=== PATIENT | male | born 1995 | race Caucasian/White ===

== ENCOUNTER 2016-07-17 17:43 | Emergency (ER) | payer SELFPAY ==
[2016-07-17] MEDS ORDERED: Benzonatate 100 MG CAP ONE (18:07)
[2016-07-17] MEDS ORDERED: Azithromycin 250 MG TAB ONE (18:07)
== END 2016-07-17 18:10 | disposition home or self-care (01) ==
LOC: MADERS 17:43
DX: J40 Bronchitis, not specified as acute or chronic (principal); F17.210 Nicotine dependence, cigarettes, uncomplicated
CPT/HCPCS: 99283

== ENCOUNTER 2016-07-20 16:30 | Emergency (ER) | payer SELFPAY ==
[2016-07-20] MEDS ORDERED: HYDROcodone/Acetaminophen 5/325 mg Tablet ONE (17:27)
[2016-07-20] MEDS ORDERED: Ketorolac Tromethamine 60 MG/2 ML VIAL ONE (17:28)
[2016-07-20] MEDS ORDERED: Dexamethasone 4 MG TAB ONE (17:28)
--- NOTE | 2016-07-20 17:41 | RAD ---
CHEST TWO VIEW 07/20/16 HISTORY: Cough. COMPARISON: None. FINDINGS: The lungs are clear. No pneumothorax or effusion. The cardiac silhouette and mediastinal contours ar e within normal limits. IMPRESSION: No acute cardiopulmonary process. POS: [facility]
== END 2016-07-20 17:45 | disposition home or self-care (01) ==
LOC: MADERS 16:30
DX: J20.9 Acute bronchitis, unspecified (principal); F17.210 Nicotine dependence, cigarettes, uncomplicated
CPT/HCPCS: 71020; 96372; J1885; J8540

== ENCOUNTER 2016-12-23 14:45 | Emergency (ER) | payer SELFPAY ==
--- NOTE | 2016-12-23 16:20 | RAD ---
RADIOGRAPH RIGHT HAND 3 VIEWS: DATE: 12/23/16. HISTORY: A 21-year-old male status post acute traumatic right hand injury. COMPARISON: 07/04/14. FINDINGS: Again demonstrated is the tiny, displaced, nonunited fracture with defect and displaced tiny fragmen t, at the 3rd distal tuft. There are no other osseous abnormalities. No acute fracture, periosteal elevation, or radiopaque foreign body. The joint spaces are maintained without erosions or osteoph ytes. No interval change overall. IMPRESSION: 1. No acute fracture. 2. Old, traumatic, mildly displaced tiny fracture at the 3rd distal tuft. 3. Otherwise, normal. POS: [facility]
== END 2016-12-23 16:55 | disposition home or self-care (01) ==
LOC: MADERS 14:45
DX: S60.221A Contusion of right hand, initial encounter (principal); F17.210 Nicotine dependence, cigarettes, uncomplicated; W23.1XXA Caught, crushed, jammed, or pinched between stationary objects, initial encounter

== ENCOUNTER 2017-02-11 18:59 | Emergency (ER) | payer SELFPAY ==
[2017-02-11] MEDS ORDERED: AMOXicillin 250 MG CAP ONE (20:01)
[2017-02-11] MEDS ORDERED: Benzonatate 100 MG CAP ONE (20:01)
[2017-02-11] MEDS ORDERED: HYDROcodone/Acetaminophen 10/325 mg Tablet ONE (20:01)
[2017-02-11] MEDS ORDERED: Naproxen 500 MG TAB ONE (20:01)
== END 2017-02-11 20:10 | disposition home or self-care (01) ==
LOC: MADERS 18:59
DX: J20.9 Acute bronchitis, unspecified (principal); F17.210 Nicotine dependence, cigarettes, uncomplicated
CPT/HCPCS: 99283

== ENCOUNTER 2017-10-14 17:53 | Emergency (ER) | payer SELFPAY ==
--- NOTE | 2017-10-14 19:11 | RAD ---
LEFT HAND THREE VIEW 10/14/17 HISTORY: Trauma. COMPARISON: None. FINDINGS: There is an intra-articular fracture of the thumb proximal phalanx extending from the head into the h ead and into the mid diaphysis and proximal metaphysis. This is comminuted without significant displa cement. IMPRESSION: Comminuted intra-articular fracture of the proximal phalanx of the thumb with the fracture extending into the interphalangeal joint. POS: [facility]
[2017-10-14] MEDS ORDERED: Cephalexin 500 MG CAP ONE (19:14)
[2017-10-14] MEDS ORDERED: Triple Antibiotic Oint 1 GM Packet ONE (19:14)
[2017-10-14] MEDS ORDERED: Adacel (T-DAP) 0.5 ML VIAL ONE (19:14)
[2017-10-14] MEDS ORDERED: Naproxen 500 MG TAB ONE (19:22)
[2017-10-14] MEDS ORDERED: HYDROcodone/Acetaminophen 10/325 mg Tablet ONE (19:22)
== END 2017-10-14 19:40 | disposition home or self-care (01) ==
LOC: MADERS 17:53
DX: S62.512A Displaced fracture of proximal phalanx of left thumb, initial encounter for closed fracture (principal); S61.412A Laceration without foreign body of left hand, initial encounter; F17.210 Nicotine dependence, cigarettes, uncomplicated; Z23 Encounter for immunization; W23.0XXA Caught, crushed, jammed, or pinched between moving objects, initial encounter
CPT/HCPCS: 29125; 90471; 90715

== ENCOUNTER 2019-01-02 10:16 | Emergency (ER) | payer SELFPAY ==
--- NOTE | 2019-01-02 10:55 | RAD ---
RIGHT HAND THREE VIEW SERIES: INDICATIONS: Post traumatic pain. COMPARISON: 12/23/2016 FINDINGS: There is chronic fragmentation at the tuft of the 3rd digit distal phalanx. No interval acute osseou s abnormality is seen. IMPRESSION: Stable chronic osseous fragmentation of the tuft of the 3rd digit distal phalanx. POS: [facility]
[2019-01-02] MEDS ORDERED: Bacitracin 1 PK ONE (10:56)
== END 2019-01-02 11:10 | disposition home or self-care (01) ==
LOC: MADERS 10:16
DX: S60.011A Contusion of right thumb without damage to nail, initial encounter (principal); F17.210 Nicotine dependence, cigarettes, uncomplicated; W22.8XXA Striking against or struck by other objects, initial encounter

== ENCOUNTER 2019-05-08 12:42 | Emergency (ER) | payer SELFPAY | END 2019-05-08 13:10 | disposition home or self-care (01) | LOC: MADERS 12:42 | DX: J06.9 Acute upper respiratory infection, unspecified (principal); F17.210 Nicotine dependence, cigarettes, uncomplicated; Z71.6 Tobacco abuse counseling | CPT/HCPCS: 99281 ==

== ENCOUNTER 2020-06-12 14:48 | Emergency (ER) | payer SELFPAY ==
[2020-06-12 16:09] LABS: #Basophils 0.1 thou/uL (0.0-0.2); #Lymphocytes 1.4 thou/uL (1.20-3.40); #Monocytes 0.4 thou/uL (0.11-0.59); #Neutrophils 3.6 thou/uL (1.40-6.50); %Eosinophils 0.3 % (0.0-10.0); %Lymphocytes 24.7 % (21.0-51.0); %Monocytes 7.9 % (0.0-10.0); %Neutrophils 66.1 % (42.0-75.0); Hemoglobin 15.7 g/dL (14.0-18.0); Mean Corpuscular HGB CONC 33.7 g/dL (32.0-36.0); Mean Corpuscular Hemoglobin 30.3 pg (27.0-31.0); Mean Platelet Volume 7.9 fL (7.4-10.4); Platelet Count 158 thou/uL (130-400); Red Blood Cell (RBC) Count 5.17 mill/uL (4.70-6.10); White Blood Cell (WBC) Count 5.5 thou/uL (4.8-10.8)
--- NOTE | 2020-06-12 16:18 | CT ---
CT head noncontrast HISTORY: Headache. FINDINGS: There is no evidence of acute intracranial hemorrhage or infarct. The ventricles appear nor mal in size, shape and position. There is no mass effect or shift of midline structures. Visualized paranasal sinuses remain well aerated. IMPRESSION : No abnormalities are demonstrated.
[2020-06-12 16:23] LABS: ALT (SGPT) 23 U/L (8-55); AST (SGOT) 25 U/L (5-34); Albumin 4.4 g/dL (3.5-5.0); Alcohol Less than 10 mg/dL (Less than 10); Alkaline Phosphatase 53 U/L (40-110); Anion Gap 14 mmol/L (10-20); BUN (Urea Nitrogen) 11 mg/dL (8.9-20.6); Bilirubin, Total 0.6 mg/dL (0.2-1.2); Calc. Creatinine Clearance 0 mL/min (70-130); Carbon Dioxide 28 mmol/L (22-29); Chloride 105 mmol/L (98-107); Globulin 2.3 g/dL (2.4-3.5); Glucose 87 mg/dL (70-105); Potassium 3.7 mmol/L (3.5-5.1); Protein, Total 6.7 g/dL (6.0-8.3); Sodium 143 mmol/L (136-145)
--- NOTE | 2020-06-12 16:43 | RAD ---
CHEST 1 VIEW: Date: 06/12/2020 HISTORY: Syncope. FINDINGS: Heart size and mediastinum are within normal limits. Lungs are clear of any infiltrates. No significa nt bony findings. IMPRESSION: No active intrathoracic disease. POS: [facility]
[2020-06-12 17:29] LABS: Amphetamine Not Detected (NotDetected); Barbiturates Screen Not Detected (NotDetected); Benzodiazepine Screen Not Detected (NotDetected); Cocaine Metabolite Screen Not Detected (NotDetected); Medtox Control Line Valid? VALID (VALID); Methadone Not Detected (NotDetected); Methamphetamine Not Detected (NotDetected); Opiate Screen Detected (NotDetected); Oxycodone Screen Not Detected (NotDetected); Phencyclidine (PCP) Not Detected (NotDetected); THC/Cannabinoid Screen Not Detected (NotDetected); Tricyclic Screen Not Detected (NotDetected)
--- NOTE | 2020-06-12 17:30 | CT ---
CT CERVICAL SPINE WITHOUT CONTRAST: 06/12/20 INDICATIONS: Fall with injury to neck. FINDINGS: Cervical vertebrae maintain normal height and alignment. Disc spaces are maintained. No evidence of f racture. No evidence of disc protrusion. IMPRESSION: Unremarkable cervical spine. POS: [facility]
== END 2020-06-12 18:30 | disposition home or self-care (01) ==
LOC: MADERS 14:48
DX: R55 Syncope and collapse (principal); S00.93XA Contusion of unspecified part of head, initial encounter; F17.210 Nicotine dependence, cigarettes, uncomplicated; W22.8XXA Striking against or struck by other objects, initial encounter
CPT/HCPCS: 36415; 70450; 71045; 72125; 80053; 80306; 80307; 84484; 85025; 93005

== ENCOUNTER 2020-06-14 23:31 | Emergency (ER) | payer SELFPAY ==
[2020-06-15] MEDS ORDERED: Morphine 2 MG/ML VIAL ONE (00:33)
[2020-06-15 00:58] LABS: #Basophils 0.1 thou/uL (0.0-0.2); #Eosinphils 0.1 thou/uL (0.0-0.7); #Lymphocytes 2.4 thou/uL (1.20-3.40); #Monocytes 0.5 thou/uL (0.11-0.59); #Neutrophils 2.9 thou/uL (1.40-6.50); %Basophils 1.3 % (0.0-1.0); %Eosinophils 2.4 % (0.0-10.0); %Lymphocytes 39.6 % (21.0-51.0); %Monocytes 7.9 % (0.0-10.0); %Neutrophils 48.9 % (42.0-75.0); Mean Corpuscular HGB CONC 33.7 g/dL (32.0-36.0); Mean Corpuscular Hemoglobin 30.4 pg (27.0-31.0); Mean Corpuscular Volume 90.3 fL (78.0-98.0); Mean Platelet Volume 8.8 fL (7.4-10.4); Platelet Count 168 thou/uL (130-400); RBC Distribution Width 10.9 % (11.5-14.5); Red Blood Cell (RBC) Count 5.27 mill/uL (4.70-6.10); White Blood Cell (WBC) Count 5.9 thou/uL (4.8-10.8)
[2020-06-15 01:51] LABS: ALT (SGPT) 21 U/L (8-55); AST (SGOT) 19 U/L (5-34); Albumin 4.3 g/dL (3.5-5.0); Alkaline Phosphatase 61 U/L (40-110); Anion Gap 12 mmol/L (10-20); BUN (Urea Nitrogen) 12 mg/dL (8.9-20.6); Bilirubin, Total 0.3 mg/dL (0.2-1.2); Calc. Creatinine Clearance 0 mL/min (70-130); Calcium 8.9 mg/dL (7.8-10.44); Carbon Dioxide 28 mmol/L (22-29); Chloride 104 mmol/L (98-107); Globulin 2.4 g/dL (2.4-3.5); Glucose 91 mg/dL (70-105); Potassium 3.4 mmol/L (3.5-5.1); Protein, Total 6.7 g/dL (6.0-8.3); Sodium 141 mmol/L (136-145)
--- NOTE | 2020-06-15 09:57 | CT ---
PRELIMINARY REPORT/[facility]/EMERGENCY AFTER HOURS PROCEDURE: EXAM: CT Head Without Intravenous Contrast. CLINICAL HISTORY: PT FELL 06/12/20, HEAD PAIN SINCE. 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 TECHNIQUE: Axial computed tomography images of the head/brain without intravenous contrast. COMPARISON: None provided. FINDINGS: BRAIN: No acute intraparenchymal hemorrhage. No mass lesion. No CT evidence for acute territorial infarct. N o midline shift or extra-axial collection. The cerebellar tonsils appear to extend just below the fo ramen magnum. A Chiari I malformation is possible. VENTRICLES: No hydrocephalus. ORBITS: The orbits are unremarkable. SINUSES AND MASTOIDS: The paranasal sinuses and mastoid air cells are clear. SOFT TISSUES: No significant facial or scalp soft tissue swelling evident. No radiopaque foreign body is seen. BONES: No acute skull fracture. IMPRESSION: No acute intracranial abnormality. The cerebellar tonsils appear to extend just below the foramen ma gnum. A Chiari I malformation is suspected. ELECTRONICALLY SIGNED BY: Kyra Hernandez DO Jun 15, 2020 12:40:52 AM CASE REVIEWER This report is intended for review by the ordering physician only, in accordance of law. If you recei ve this report in error, please call [facility] at [phone]. FINAL REPORT EMERGENCY AFTER HOURS CT BRAIN: I agree with the preliminary report provided by [facility]. The examination is not appreciably change from the comparison dated 06/12/2020. No acute intracranial abnormality is demonstrated. POS:
== END 2020-06-15 03:05 | disposition short-term general hospital (02) ==
LOC: MADERS 23:31
DX: R51.9 Headache, unspecified (principal); R20.2 Paresthesia of skin; R41.82 Altered mental status, unspecified; F17.210 Nicotine dependence, cigarettes, uncomplicated
CPT/HCPCS: 70450; 80053; 85025; 96374; J2270

== ENCOUNTER 2022-05-02 14:38 | Emergency (ER) | payer SELFPAY ==
[2022-05-02] MEDS ORDERED: Lidocaine 1% PF 5 ML VIAL ONE (15:19)
[2022-05-02] MEDS ORDERED: Bacitracin 1 PK ONE (16:14)
== END 2022-05-02 16:58 | disposition home or self-care (01) ==
LOC: MADERS 14:38
DX: S61.211A Laceration without foreign body of left index finger without damage to nail, initial encounter (principal); W26.0XXA Contact with knife, initial encounter; Z87.891 Personal history of nicotine dependence
CPT/HCPCS: 12001

== ENCOUNTER 2024-01-21 22:27 | Emergency (ER) | payer SELFPAY ==
[2024-01-21] MEDS ORDERED: Bupivacaine PF 0.5% 30 ML VIAL ONE (22:38)
[2024-01-21] MEDS ORDERED: Lidocaine 1% w/Epinephrine 1:100K 20 ML VIAL ONE (22:38)
[2024-01-21] MEDS ORDERED: Amoxicillin/Potassium Clav 875 MG TAB ONE (22:38)
== END 2024-01-21 23:04 | disposition home or self-care (01) ==
LOC: MADERS 22:27
DX: K08.89 Other specified disorders of teeth and supporting structures (principal); F17.210 Nicotine dependence, cigarettes, uncomplicated
CPT/HCPCS: 64400; J0665

== ENCOUNTER 2024-01-26 20:56 | Emergency (ER) | payer SELFPAY ==
[2024-01-26] MEDS ORDERED: Ketorolac Tromethamine 30 MG (1 mL) VIAL ONE (21:31)
[2024-01-26] MEDS ORDERED: Lidocaine 1% w/Epinephrine 1:100K 20 ML VIAL ONE (21:31)
[2024-01-26] MEDS ORDERED: Bupivacaine PF 0.5% 30 ML VIAL ONE (21:32)
[2024-01-26] MEDS ORDERED: Nicotine 7 MG PATCH ONE (21:49)
== END 2024-01-26 22:14 | disposition home or self-care (01) ==
LOC: MADERS 20:56
DX: K08.89 Other specified disorders of teeth and supporting structures (principal); F17.210 Nicotine dependence, cigarettes, uncomplicated
CPT/HCPCS: 64400; 96372; J0665; J1885